=== PATIENT | female | born 1940 | race Caucasian/White ===

== ENCOUNTER → 2023-03-21 | Outpatient (CLI) | payer MEDICARE, OTHER ==
[~2023-03-21] MED LIST: ELIQUIS5 MG PO; LEVOTHYROXINE112 MCG PO; TORSEMIDE10 MG PO
== END ==
LOC: DX 14:27
PROVIDERS: ATTEND Internal Medicine Cardiovascular Disease
DX: M85.88 Other specified disorders of bone density and structure, other site (principal)
CPT/HCPCS: 77080

== ENCOUNTER → 2023-08-12 | Outpatient (REF) | payer MEDICARE, OTHER | LOC: RAD 14:18 | PROVIDERS: ATTEND Internal Medicine | DX: M79.604 Pain in right leg (principal); M25.561 Pain in right knee; R60.0 Localized edema | CPT/HCPCS: 93971 ==